=== PATIENT | female | born 1965 | race Caucasian/White ===

== ENCOUNTER 2017-03-18 14:56 | Outpatient (CLI) | payer BC ==
--- NOTE | 2017-03-18 15:40 | Mammography Report ---
BILATERAL MAMMOGRAM: FINDINGS: The breast tissue is heterogeneously dense, which could obscure detection of small masses (approximately 50%-75% glandular). No mass, distortion, suspicious calcification, or skin change is seen. No significant change when compared to prior exam in March 2016. CAD was utilized. IMPRESSION: Negative mammogram. There is no mammographic evidence of malignancy. RECOMMENDATION: Follow-up per ACS guidelines. BI-RADS CATEGORY: 1 = Negative ACR BI-RADS MAMMOGRAPHIC CODES: 0 = Needs additional imaging evaluation; 1 = Negative; 2 = Benign; 3 = Probably benign; 4 = Suspicious; 5 = Malignant; 6 = Known biopsy-proven malignancy COMMENT: 1. Dense breast tissue, i.e., adenosis, fibrocystic changes, etc., may obscure an underlying neoplasm. 2. Approximately 10% of cancers are not detected with mammography. 3. A negative mammography report should not delay biopsy if a clinically suspicious mass is present. COMMENT: Patient follow-up letters are generated in [employer].
== END 2017-03-18 14:57 | disposition home or self-care (01) ==
LOC: MAMMO 14:56
PROVIDERS: ATTEND Obstetrics & Gynecology
DX: Z12.31 Encounter for screening mammogram for malignant neoplasm of breast (principal)
CPT/HCPCS: 77067; G0202

== ENCOUNTER 2017-03-27 11:00 | Outpatient (CLI) | payer BC ==
[2017-03-27 11:53] LABS: Blood Urea Nitrogen 14 mg/dL (7-17)
--- NOTE | 2017-03-27 15:26 | Magnetic Resonance Report ---
MRI BRAIN WITH AND WITHOUT CONTRAST MRI ORBIT/FACE/NECK WITH AND WITHOUT CONTRAST INDICATION: Visual field loss. COMPARISON: None similar. FINDINGS: Multiplanar and multisequence MRI of the brain and orbits performed before and after 15 mL Multihance intravenously. Mild to moderately enlarged, though symmetric sulci. Normal ventricles. No acute hemorrhage, mass effect or midline shift. No abnormal extra axial masses or fluid collections. An approximately 7 mm subtle focus of restricted diffusion noted left posterior frontal periventricular/pre-central white matter as on axial series 4, image 25, not clearly hypointense on the ADC. Mild periventricular and numerous white matter FLAIR and T2 weighted hyperintensities, few latter somewhat elongated and measuring up to 8 mm on the left as on axial series 7, image 17 and oriented horizontal/perpendicular to the lateral ventricle as on axial series 6, images 17-19, amongst others. No focal suspicious abnormal enhancement however. Normal major intracranial vascular flow-voids. Normal posterior fossa with preserved basilar cisterns and symmetric seventh and eighth nerve complexes. Leftward nasal septal deviation/approximately 7 mm leftward septal spur touching the nasal mucosa. Slight ethmoid sinusitis. Clear remainder imaged paranasal sinuses and mastoid air cells. Normal midline structures without evidence of Chiari malformation. Orbits demonstrate symmetric eye globes with orthotopic position of the lenses. Normal retrobulbar appearance of the muscles and optic nerves without abnormal enhancement. CONCLUSION: 1. Brain MRI demonstrating sulcal atrophy and few periventricular/white matter lesions not excluded for multiple sclerosis in an appropriate setting. Please also correlate clinically and with oligoclonal bands. 2. Normal MRI of the orbits with few other incidental findings, including leftward nasal septal deviation/spur, as above. Thank you for the opportunity to participate in this patient's care.
== END 2017-03-27 11:01 | disposition home or self-care (01) ==
LOC: MRI 11:00
PROVIDERS: ATTEND Ophthalmology
DX: J32.2 Chronic ethmoidal sinusitis (principal); R29.810 Facial weakness; H55.00 Unspecified nystagmus; H54.7 Unspecified visual loss; J34.2 Deviated nasal septum
CPT/HCPCS: 36415; 70543; 70553; 82565; 84520; A9577

== ENCOUNTER 2018-03-20 14:08 | Outpatient (CLI) | payer BC ==
--- NOTE | 2018-03-21 14:15 | Mammography Report ---
BILATERAL DIGITAL SCREENING MAMMOGRAM with CAD: 03/20/18 14:08:00 CLINICAL: Routine screening. COMPARISON:03/18/17 FINDINGS: The breasts are heterogeneously dense, which may obscure small masses. No mass, architectural distortion or suspicious calcifications. IMPRESSION: No mammographic evidence of malignancy. BI-RADS CATEGORY: 1 - - Negative RECOMMENDATION: Routine mammographic screening in one year. COMMENT: Patient follow-up letters are generated by our [employer] application.
== END 2018-03-20 14:09 | disposition home or self-care (01) ==
LOC: MAMMO 14:08
PROVIDERS: ATTEND Obstetrics & Gynecology
DX: Z12.31 Encounter for screening mammogram for malignant neoplasm of breast (principal)
CPT/HCPCS: 77067

== ENCOUNTER 2019-03-23 14:42 | Outpatient (CLI) | payer BC ==
--- NOTE | 2019-03-25 10:49 | Mammography Report ---
BILATERAL DIGITAL SCREENING MAMMOGRAM WITH CAD INDICATION: Routine screening mammography. TECHNIQUE: Digital bilateral 2D mammography was obtained in the craniocaudal and mediolateral obliq ue projections. This examination was interpreted with the benefit of Computer-Aided Detection analysi s. COMPARISON: 03/18/2017 FINDINGS: Breast Density: The breasts are heterogeneously dense, which may obscure small masses. No mass, architectural distortion or suspicious calcifications. IMPRESSION:No mammographic evidence of malignancy. BI-RADS Category 1: Negative. No mammographic evidence of malignancy. Recommend routine screening m ammography in one year. A "normal" or negative report should not discourage follow up or biopsy of a clinically significant f inding. A written summary of these findings will be mailed to the patient. The patient will be entered into a mammography reporting system which will generate a reminder letter for the patient's next appointmen t at the appropriate interval. The [employer] recommends yearly mammograms starting at age 40 and continuing as l sujatha as a woman is in good health. Breast MRI is recommended for women with an approximate 20-25% or greater lifetime risk of breast cancer, including women with a strong family history of breast or ova rachelle cancer or who have been treated for Hodgkin's disease. Signer Name: Joseph Bustamante MD Signed: 03/25/2019 10:44 AM Workstation Name: [id number]
== END 2019-03-23 14:43 | disposition home or self-care (01) ==
LOC: MAMMO 14:42
PROVIDERS: ATTEND Obstetrics & Gynecology
DX: Z12.31 Encounter for screening mammogram for malignant neoplasm of breast (principal)
CPT/HCPCS: 77067

== ENCOUNTER 2020-03-24 15:05 | Outpatient (CLI) | payer BC | END 2020-03-24 15:06 | disposition home or self-care (01) | LOC: MAMMO 15:05 | PROVIDERS: ATTEND Obstetrics & Gynecology | DX: Z12.31 Encounter for screening mammogram for malignant neoplasm of breast (principal) | CPT/HCPCS: 77067 ==

== ENCOUNTER 2021-03-27 14:43 | Outpatient (CLI) | payer BC ==
--- NOTE | 2021-03-28 08:42 | Mammography Report ---
BILATERAL DIGITAL SCREENING MAMMOGRAM WITH CAD HISTORY: Screening mammogram. TECHNIQUE: Routine digital mammographic imaging performed. This examination was interpreted with ata griffith benefit of Computer-aided Detection analysis. COMPARISON: 03/24/2020, 03/23/2019, 03/20/2018. FINDINGS: Breast Density: heterogeneously dense breast parenchymal pattern which somewhat lessens the sensitivi ty of the evaluation. Digital CC and MLO views demonstrate no mammographic evidence of malignancy. IMPRESSION: No mammographic evidence of malignancy. If the clinical examination remains stable, recommend bilate ral mammogram in approximately one year. BIRADS 1: Negative. FURTHER INFORMATION: According to the [employer], yearly mammograms are recommend ed starting at age 40 and continuing as long as a woman is in good health. Clinical Breast Exams shou ld be part of a periodic health exam-about every 3 years for women in their 20s and 30s and every yea r for women 40 and over. Breast self exam is an option for women starting in their 20s. Any breast ch pedro luis noted on a breast self exam should be reported promptly to the patient's healthcare provider. Br east MRI is recommended for women with an approximately 20-25% or greater lifetime risk of breast can cer, including women with a strong family history of breast or ovarian cancer and women who have been treated for Hodgkin's disease. A negative Mammography report should not discourage follow up or biopsy of a clinically significant f inding and/or abnormality. Dense breast tissue may obscure small neoplasms. The patient will be entered into a reminder system with a target due date for the next screening mamm ogram. Signer Name: Mansoor Lees MD Signed: 03/28/2021 8:16 AM Workstation Name: [id number]
== END 2021-03-27 14:44 | disposition home or self-care (01) ==
LOC: MAMMO 14:43
PROVIDERS: ATTEND Obstetrics & Gynecology
DX: Z12.31 Encounter for screening mammogram for malignant neoplasm of breast (principal)
CPT/HCPCS: 77067

== ENCOUNTER 2022-03-30 14:49 | Outpatient (CLI) | payer BC | END 2022-03-30 14:50 | disposition home or self-care (01) | LOC: MAMMO 14:49 | PROVIDERS: ATTEND Obstetrics & Gynecology | DX: Z12.31 Encounter for screening mammogram for malignant neoplasm of breast (principal) | CPT/HCPCS: 77067 ==